=== PATIENT | male | born 1960 ===

== ENCOUNTER 2022-09-13 14:38 | Inpatient (IN) | payer MEDICAID ==
[~2022-09-13] VITALS: Ht 182.9 cm; Wt 73.5 kg
--- NOTE | 2022-09-13 18:15 | NUR ---
Admission Note: Pt. was admitted to the unit on a gurney from [place] in [place] accompanied by drivers. Pt. is on a 5150 for GD. Per 5150: Pt. Expresses magical thinking about being a real estate assessor or ex chef. He appears unable to concretely describe how he will access food, clothing, and mcc (eviction may be imminent). Pt . was cooperative with skin assessment, however refuses to shower at this time, endorsed to Noc shift.
[2022-09-13 18:20] VITALS: BP 171/93; PULSE 64; RESP 16; TEMP 98.2; O2SAT 99
[2022-09-13 19:00] VITALS: RESP 20; O2SAT 100
[2022-09-13] MEDS ORDERED: acetaminophen 325mg tablet PO PRN ×2 (19:05)
[2022-09-13] MEDS ORDERED: loperamide 2mg capsule PO PRN (19:05)
[2022-09-13] MEDS ORDERED: mag hydrox/Alum hydrox/simeth 30ml oral suspension PO PRN (19:05)
[2022-09-13] MEDS ORDERED: magnesium hydroxide 30ml (MOM) UD suspension PO PRN (19:05)
[2022-09-13] MEDS ORDERED: ACET-812 PO (19:15)
[2022-09-13] MEDS ORDERED: CEPH500C2 PO (19:19)
[2022-09-13] MEDS ORDERED: CLIN300C3 PO (19:21)
[2022-09-13] MEDS ORDERED: DIAZ5TAB4 PO (19:23)
[2022-09-13] MEDS ORDERED: HYDR-3686 PO (19:26)
[2022-09-13 19:29] VITALS: BP 164/119; PULSE 81; RESP 20; TEMP 98.2; O2SAT 100
[2022-09-13] MEDS ORDERED: LIPA1CAP18 PO (19:30)
[2022-09-13] MEDS ORDERED: METH-603 PO (19:32)
[2022-09-13] MEDS ORDERED: MORP15TA PO (19:34)
[2022-09-13] MEDS ORDERED: HYDR-3717 PO (19:45)
[2022-09-13] MEDS: diazepam 5mg tablet PO PRN (21:03)
[2022-09-13] MEDS: methadone 5mg tablet PO SCH (21:10)
[2022-09-13] MEDS: morphine IR (immed. release) 30mg tablet PO SCH (21:10)
[2022-09-14] MEDS ORDERED: non-formulary drug (Acetaminophen (Tylenol Extra Strength) 1 TABLET) PO SCH (02:00)
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
[2022-09-14 07:06] VITALS: BP 164/123; PULSE 65; RESP 16; TEMP 97; O2SAT 100
[2022-09-14] MEDS: LIPASE/PROTEASE/AMYLASE 10,500 units CAPSULE.DR PO SCH ×4 (07:19→18:25)
[2022-09-14] MEDS: nicotine 21mg patch - 24 hr TD SCH (07:22)
[2022-09-14] MEDS: methadone 5mg tablet PO SCH ×3 (07:23→20:15)
[2022-09-14 07:35] LABS: HEMOGLOBIN A1C 5.2 % (4.5-6.2)
[2022-09-14 08:25] LABS: CHOL/HDL RATIO 3.1 (0.00-4.99); CHOLESTEROL 159 MG/DL (0-200); HDL CHOLESTEROL 52 MG/DL (35-60); LDL CHOLESTEROL 95 MG/DL (50-100); TRIGLYCERIDES 40 MG/DL (20-135)
[2022-09-14] MEDS: morphine IR (immed. release) 30mg tablet PO SCH (08:40)
[2022-09-14 09:22] VITALS: RESP 18; O2SAT 100
--- NOTE | 2022-09-14 12:31 | NUR ---
Malnutrition consult: Pt reports 14-23 lb wt loss with decreased appetite per malnutrition risk screen with RN. No wt hx in EMR though current scaled weight is appropriate. Pt on a regular diet and eating well, documented with 100% PO intake with an HS snack 09/13. Pt with no documented decrease in muscle strength and with LLE 2+ mild edema. Pt currently lacks a minimum of two criteria for malnutrition though will continue to follow and monitor s/s of malnutrition. Addendum: 09/14/22 at [address] Amended: Links added.
[2022-09-14] MEDS: diazepam 5mg tablet PO PRN ×2 (13:04→15:51)
--- NOTE | 2022-09-14 16:41 | NUR ---
Nursing progress note: Problem: Pt. was admitted to the unit on a gurney from [place] in [place] accompanied by drivers. Pt. is on a 5150 for GD. Per 5150: Pt. Expresses magical thinking about being a real estate consultant or chef's assistant. He appears unable to concretely describe how he will access food, clothing, and fpc (eviction may be imminent). Interventions: Administer PRN medications as appropriate. Increased level of observation. Minimize level of environmental stimulation. Monitor patient behaviors. ADL prompting. Administer treatments as prescribed. Assess status. Provide patient/family education. Perform q15 minutes checks. Response: Client very fast talking and very dramatic in his description and stories. Patient took all medications during the morning hours except did not take all of his Creon at this time. Patient states his scabs to his lower extremities are ingrown hairs that have spread and become infected. Patient had been using socks to remove dry skin, new socks were provided. Patient upset about morphine and methadone scheduling but states, I would rather withdrawal here and scream into a pillow, then be a nuisance to my neighbors. Patient is getting what his medication reconciliation states he takes. Patient spoke with MD and Patient experiencing delusional about conspiracy theories about not receiving federal healthcare benefits. Plan: Pt. medication adjustments, and a safe and supportive environment.
[2022-09-14 19:00] VITALS: RESP 18; O2SAT 96
[2022-09-14 20:00] VITALS: BP 170/108; PULSE 96; RESP 20; TEMP 99.3; O2SAT 99
[2022-09-14] MEDS: hydrOXYzine 10 MG tablet PO PRN (20:15)
[2022-09-14] MEDS: morphine IR (immed. release) 30mg tablet PO PRN (20:33)
--- NOTE | 2022-09-14 23:59 | NUR ---
Patient was given Diazepam 5 mg for anxiety.
[2022-09-15] MEDS ORDERED: traZODone 50mg tablet PO ONE (00:25)
[2022-09-15] MEDS ORDERED: PALIPERIDONE 3 MG TAB.ER.24 PO ONE (00:25)
--- NOTE | 2022-09-15 03:30 | NUR ---
The patient bangs on his wall and yells. This abstract writer enters patients room to inquire how he is doing? The patient uses foul language and screams "what do you think? He yells at this abstract writer to "get the fuck out of my room." He continued to rant. Patient states he should be given Ativan 4 mg, that is what works for me. He then repeated his above statement about leaving the room.
[2022-09-15] MEDS: diazepam 5mg tablet PO PRN ×3 (03:35→16:07)
--- NOTE | 2022-09-15 03:47 | NUR ---
Nursing progress note: Problem: Pt. was admitted to the unit on a gurney from [place] in [place] accompanied by drivers. Pt. is on a 5150 for GD. Per 5150: Pt. Expresses magical thinking about being a real estate rep or manager control. He appears unable to concretely describe how he will access food, clothing, and half-way (eviction may be imminent). Interventions: Administer PRN medications as appropriate. Increased level of observation. Minimize level of environmental stimulation. Monitor patient behaviors. ADL prompting. Administer treatments as prescribed. Assess status. Provide patient/family education. Perform q15 minutes checks. Response: This patient ambulates the halls following shift change. The patient approaches this nurse demanding narcotics. He expresses anger that he is not getting what he needs, "I'm always prescribed more than I'm getting here." The patient exhibits manic behavior, his speech is rapid and at times loud. The patient exhibits mood swings. He later talks about fire engines and fire boats, gargoyles, beautiful architecture in [place], etc. Patient tells this television writer "this is as bad as it gets!" Patient was given Diazepam, Atarax, and his Rx meds. Patient night states he can't sleep. Dr. Alvarenga contacted, an order was received for Paliperidone 6 mg PO, this was given. A Trazadone PRN order was received. The patient refused his Trazidone telling this television writer, "It makes me suicidal." The patient denies S/I or H/I at this time. He denies any hallucinations. Plan: Pt. medication adjustments, and a safe and supportive environment.
--- NOTE | 2022-09-15 05:47 | NUR ---
The patient provided a female Tech with a hand written note that looked nonsensical to this chief writer. The Tech felt uncomfortable about being the subject of this note. The note will be placed in the patients chart for the provider to view if necessary.
[2022-09-15 07:00] VITALS: BP 178/102; PULSE 82; RESP 18; TEMP 98.7; O2SAT 99
[2022-09-15] MEDS: methadone 5mg tablet PO SCH ×2 (08:04→20:15)
[2022-09-15] MEDS: nicotine 21mg patch - 24 hr TD SCH (08:04)
[2022-09-15] MEDS: LIPASE/PROTEASE/AMYLASE 10,500 units CAPSULE.DR PO SCH ×3 (08:04→17:52)
[2022-09-15] MEDS: morphine IR (immed. release) 30mg tablet PO PRN ×2 (08:05→20:16)
[2022-09-15] MEDS: hydrOXYzine 10 MG tablet PO PRN (08:05)
[2022-09-15] MEDS ORDERED: atenolol 50mg tablet PO ONE (08:46)
[2022-09-15] MEDS ORDERED: divalproex sod 250mg ER (24-hour) tablet PO ONE (08:50)
[2022-09-15 11:03] VITALS: BP 142/93; PULSE 61; RESP 18; O2SAT 98
--- NOTE | 2022-09-15 17:36 | NUR ---
Nursing progress note: Problem: Pt. was admitted to the unit on a gurney from [place] in [place] accompanied by drivers. Pt. is on a 5150 for GD. Per 5150: Pt. Expresses magical thinking about being a director of real estate or catcher helper. He appears unable to concretely describe how he will access food, clothing, and alf (eviction may be imminent). Interventions: Administer PRN medications as appropriate. Increased level of observation. Minimize level of environmental stimulation. Monitor patient behaviors. ADL prompting. Administer treatments as prescribed. Assess status. Provide patient/family education. Perform q15 minutes checks. Response: Patient awake at change of shift walking the hallways. Patient is hyperverbal, and has many stories to tell. Patient attends all meals and snacks with his peers. Patient takes medications as ordered except he only took 1/3 of his Pancrease for breakfast and took the full amount for lunch. Patient took two prn Valium this shift. Patient reports that he is being evicted and has to be at his house at 08:00 in the morning to remove his belongings, before being evicted. Patient is hypomanic and states that [facility] has me down for being a linguistic specialist. Patient asked RN if I knew of Ambroseist mu-ism? Informed him that I was not very familiar. Patient went on to say that Deo sat by a tree for 9 years and was enlightened at the end of it. Patient similarly states that I has been on a couch for 14 years and he has reached a period of enlightenment, and that his thoughts are clear and he is back. Patient with pressured speech. Patient was seen wearing headphones and dancing at the end of the collins next to his room. Patient is in a good mood and is happy with his medications. Plan: Pt. medication adjustments, and a safe and supportive environment.
[2022-09-15 19:00] VITALS: RESP 18; O2SAT 98
[2022-09-15 19:51] VITALS: BP 148/94; PULSE 98; RESP 18; TEMP 98.9; O2SAT 98
[2022-09-15] MEDS: divalproex sod 250mg ER (24-hour) tablet PO SCH (20:00)
[2022-09-15] MEDS ORDERED: LORazepam 0.5 MG tablet PO PRN (20:20)
[2022-09-15] MEDS: PALIPERIDONE 3 MG TAB.ER.24 PO SCH (21:00)
[2022-09-15] MEDS: NICOTINE POLACRILEX 2 MG LOZENGE BC PRN (23:30)
[2022-09-16] MEDS: LORazepam 1 MG tablet PO ONE ×2 (02:26→02:50)
--- NOTE | 2022-09-16 05:08 | NUR ---
Nursing progress note: Problem: Pt. was admitted to the unit on a gurney from [place] in [place] accompanied by drivers. Pt. is on a 5150 for GD. Per 5150: Pt. Expresses magical thinking about being a residential real estate appraiser or stapler hand. He appears unable to concretely describe how he will access food, clothing, and longterm (eviction may be imminent). Interventions: Administer PRN medications as appropriate. Increased level of observation. Minimize level of environmental stimulation. Monitor patient behaviors. ADL prompting. Administer treatments as prescribed. Assess status. Provide patient/family education. Perform q15 minutes checks. Response: Pt up walking in halls at start of shift. During introductions pt became argumentative. He said he is going to be evicted so he needs to get out of here for 24 hours and then he will come back. Informed he will have to talk to his Doctor about that. Pt refused Depakote and Invega took Methadone and Ativan. He continued to walk in halls at times randomly spinning and crouching. At 0245 rounds pt had barricaded door shut. He had used 2 chairs barricaded against the bed. Tech was able to move chair with foot and open door. Chair removed from room. Pt was loud yelling things like I need to see my advocate right now. Dr Alvarenga called and ordered 2mg Ativan now. Pt agreed to take Ativan. 0315 Pt is staying in his room periodically yelling things like I dont fucking believe this. Any attempt to comfort or appease him makes him yell more. Pt is quiet in his dark room. Plan: Pt. medication adjustments, and a safe and supportive environment.
[2022-09-16 07:00] VITALS: RESP 20; O2SAT 100
[2022-09-16] MEDS: LIPASE/PROTEASE/AMYLASE 10,500 units CAPSULE.DR PO SCH ×3 (07:30→18:14)
[2022-09-16] MEDS: atenolol 50mg tablet PO SCH (07:30)
[2022-09-16] MEDS ORDERED: diazepam 5mg tablet PO ONE (07:45)
[2022-09-16] MEDS: morphine IR (immed. release) 30mg tablet PO PRN ×2 (07:55→17:10)
[2022-09-16 08:00] VITALS: BP 152/110; PULSE 73; RESP 20; TEMP 97.6; O2SAT 100
[2022-09-16] MEDS: divalproex sod 250mg ER (24-hour) tablet PO SCH ×2 (08:00→20:00)
[2022-09-16] MEDS: methadone 5mg tablet PO SCH ×2 (08:00→10:53)
[2022-09-16] MEDS: NICOTINE POLACRILEX 2 MG LOZENGE BC PRN (11:55)
[2022-09-16] MEDS ORDERED: morphine IR (immed. release) 30mg tablet PO PRN (12:15)
[2022-09-16 12:22] VITALS: BP 152/92; PULSE 71; RESP 18; O2SAT 96
--- NOTE | 2022-09-16 13:34 | NUR ---
5250 UPHELD FOR DTS
[2022-09-16] MEDS ORDERED: methadone 5mg tablet PO SCH (16:00)
--- NOTE | 2022-09-16 17:22 | NUR ---
Nursing progress note: Ru Problem: Pt. was admitted to the unit on a gurney from [place] in [place] accompanied by drivers. Pt. is on a 5150 for GD. Per 5150: Pt. Expresses magical thinking about being a residential real estate agent or performing arts technicians. He appears unable to concretely describe how he will access food, clothing, and half-way (eviction may be imminent). Interventions: Provided 1:1 assessment, therapeutic conversation, active listening, medication administration/education/monitoring, behavior monitoring and intervention as needed; attempted reality orientation, provided distraction, redirection, positive reinforcement, and Q15 min safety checks. Response: Patient received awake pacing around the unit, noted to be irritable and hyperverbal. Patient noted refusing scheduled medication this morning. Encouraged to take scheduled Atenolol d/t elevated BP of 152/110mmHg. Patient verbally aggressive toward staff. Attempted to shove and got in the face of the charge nurse after being informed to stop cursing at staff. Patient endorsing that he is argelia I didnt tear through him like I wanted to! Patient was only receptive to take PRN Morphine and One-time dose of Diazepam 5mg this morning. He later was receptive to scheduled Methadone for pain. Patient endorsing, I take what I want when I want it, little bitch! He is noted to be intrusive, impulsive, and disruptive on the unit. Patient denies all MH symptoms, however, is noted talking to himself throughout the shift. Patient was noted endorsing that he gets high off his sisters hesham crafts to manage his pain, referring to fentanyl. Patient stating that he needs pain meds or a hammer to the head. He was noted to be hypomanic toward the end of the shift and less intrusive toward staff. Pt continues to require frequent redirection. He has been having meals provided to him in his room to avoid disruption on the unit. Plan: Pt. medication adjustments, and a safe and supportive environment. Addendum: 09/16/22 at 1730 by Bobo Reynolds RN (Coop) SENIOR BOILER OPERATOR documentation: I have reviewed and agree with all interventions, assessments performed and documented by Lisa MATA. Addendum: 09/16/22 at 1818 by Lisa San LVN Patient only receptive to taking one Pancreaze capsule at 1730 despite prescribed order for three capsules.
[2022-09-16 19:00] VITALS: RESP 16; O2SAT 100
[2022-09-16 20:00] VITALS: BP 123/75; PULSE 76; RESP 16; TEMP 98.6; O2SAT 100
[2022-09-16] MEDS: LORazepam 0.5 MG tablet PO PRN (20:10)
[2022-09-16] MEDS: LORazepam 1 MG tablet PO PRN (20:10)
[2022-09-16] MEDS: PALIPERIDONE 3 MG TAB.ER.24 PO SCH (21:00)
--- NOTE | 2022-09-17 01:55 | NUR ---
Nursing progress note: Ru Problem: Pt. was admitted to the unit on a gurney from [place] in [place] accompanied by drivers. Pt. is on a 5150 for GD. Per 5150: Pt. Expresses magical thinking about being a real estate operations manager or sous chef kitchen manager. He appears unable to concretely describe how he will access food, clothing, and skilled nursing (eviction may be imminent). Interventions: Provided 1:1 assessment, therapeutic conversation, active listening, medication administration/education/monitoring, behavior monitoring and intervention as needed; attempted reality orientation, provided distraction, redirection, positive reinforcement, and Q15 min safety checks. Response: Pt up on unit at start of shift. Hyperverbal, hostile toward staff, immediately asked if he could have any pain meds. No pain meds due. Pt behavior continued to escalate Pt declined Ativan at first attempt. Charge nurse was able to convince pt to take Ativan. Pt continued to refuse Depakote and Invega. Dr. Alvarenga notified by phone about pt refusing meds. Dr Alvarenga suggested to offer the pt Zyprexa. When Zyprexa offered to pt he said "I want Morphine if you don't have that get away from me." Pt stayed in room after that. He went to sleep about 23:30 sleeping at this time. Plan: Pt. medication adjustments, and a safe and supportive environment.
[2022-09-17 07:00] VITALS: RESP 14; O2SAT 100
[2022-09-17] MEDS: LIPASE/PROTEASE/AMYLASE 10,500 units CAPSULE.DR PO SCH ×3 (07:30→18:02)
[2022-09-17] MEDS: atenolol 50mg tablet PO SCH (07:48)
[2022-09-17 08:00] VITALS: BP 151/101; PULSE 74; RESP 16; TEMP 99; O2SAT 100
[2022-09-17] MEDS ORDERED: morphine IR (immed. release) 30mg tablet PO SCH (08:00)
[2022-09-17] MEDS: divalproex sod 250mg ER (24-hour) tablet PO SCH ×3 (08:00→20:46)
--- NOTE | 2022-09-17 10:00 | NUR ---
Initial: Pt admit for bipolar disorder with dania. Currently on a regular diet and eating well, documented with 100% PO intake of all meals with the exception of 25% PO intake x 2 meals since admit, overall meeting estimated nutrient needs. Per EMR pt with h/o chronic pancreatitis, currently receiving routine Pancreaze with meals. LBM 09/15 per EMR, with PRN bowel care available. No nutrition intervention implemented at this time. Will continue to follow and make recommendations as appropriate. Recommendations: 1) Continue regular diet 2) Continue routine Pancreaze with meals d/t reported h/o chronic pancreatitis 3) Bowel care PRN 4) Weekly scaled weights Addendum: 09/17/22 at [address] Amended: Links added.
[2022-09-17] MEDS: morphine IR (immed. release) 30mg tablet PO PRN (11:04)
[2022-09-17] MEDS ORDERED: morphine IR (immed. release) 30mg tablet PO ONE (13:00)
[2022-09-17] MEDS: NICOTINE POLACRILEX 2 MG LOZENGE BC PRN (14:05)
[2022-09-17] MEDS: methadone 5mg tablet PO SCH (14:05)
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
[2022-09-17 19:00] VITALS: BP 163/89; PULSE 68; RESP 18; TEMP 98.7; O2SAT 99
[2022-09-17] MEDS: PALIPERIDONE 3 MG TAB.ER.24 PO SCH (20:47)
[2022-09-17] MEDS: LORazepam 1 MG tablet PO PRN (20:47)
[2022-09-17] MEDS: LORazepam 0.5 MG tablet PO PRN (23:20)
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
--- NOTE | 2022-09-18 02:12 | NUR ---
Student documentation: I have reviewed all interventions, assessments performed and documented by Camila MATA.
[2022-09-18 07:00] VITALS: RESP 16; O2SAT 100
[2022-09-18 08:00] VITALS: BP 144/94; PULSE 75; RESP 16; TEMP 98.8; O2SAT 100
[2022-09-18] MEDS: morphine IR (immed. release) 30mg tablet PO SCH ×2 (08:10→13:00)
[2022-09-18] MEDS: divalproex sod 250mg ER (24-hour) tablet PO SCH ×2 (08:11→20:12)
[2022-09-18] MEDS: atenolol 50mg tablet PO SCH (08:11)
[2022-09-18] MEDS: LIPASE/PROTEASE/AMYLASE 10,500 units CAPSULE.DR PO SCH ×3 (08:15→18:19)
[2022-09-18] MEDS: LORazepam 1 MG tablet PO PRN (10:49)
[2022-09-18] MEDS: methadone 5mg tablet PO SCH (14:23)
--- NOTE | 2022-09-18 14:45 | NUR ---
PRESSURE ULCER EDUCATION: DEFINITION: A pressure ulcer is an area of skin that breaks down when you stay in one position too long. The constant pressure against the skin reduces the blood flow to that area and the affected tissue dies. CAUSES: "Being bedridden or in a wheelchair "Fragile skin "Having a chronic condition, such as diabetes or vascular disease "Inability to move certain parts of your body without assistance "Older age "Incontinence of urine or stool SYMPTOMS: "A reddened area that DOES NOT turn white when pressed on - this can be the beginning of a pressure ulcer "A blister, deep sore or a crater - these can be advanced pressure ulcers FIRST AID: "Relieve the pressure on this area "Keep the area clean and dry "Call your primary doctor if you see any of the above symptoms "DO NOT massage the area "DO NOT use a donut shaped or ring shaped pillow- these actually interfere with the blood flow and cause complications PREVENTION: "Check for pressure ulcers everyday "Change position at least every two hours to relieve pressure "Use items that help relieve pressure- pillows, sheepskin, foam padding, and powders. "Keep skin clean and dry "Eat healthy well balanced meals "Exercise daily IF YOU SEE ANY OF THESE SYMPTOMS WHILE IN THE HOSPITAL - TELL YOUR NURSE IMMEDIATELY. IF YOU SEE ANY OF THESE SYMPTOMS WHILE AT HOME OR HAVE ANY QUESTIONS OR CONCERNS ABOUT PRESSURE ULCERS - CALL YOUR PRIMARY DOCTOR IMMEDIATELY. Addendum: 09/18/22 at 1445 by Lana Feng RN Amended: Links added.
--- NOTE | 2022-09-18 17:08 | NUR ---
Nursing progress note: Ru Problem: Pt. was admitted to the unit on a gurney from [place] in [place] accompanied by drivers. Pt. is on a 5150 for GD. Per 5150: Pt. Expresses magical thinking about being a real estate executive assistant or run boat operator. He appears unable to concretely describe how he will access food, clothing, and custodial (eviction may be imminent). Interventions: Provided 1:1 assessment, therapeutic conversation, active listening, medication administration/education/monitoring, behavior monitoring and intervention as needed; attempted reality orientation, provided distraction, redirection, positive reinforcement, and Q15 min safety checks. Response: Patient received walking around the unit at shift change with no s/s of distress. Pt appearing hypomanic with hyperverbal, tangential speech. Patient was only receptive to all scheduled medications this morning. Patient endorsing, look how much happier my mood is now! He denies SI/HI, AH and VH. Pt endorsed feeling suicidal in the past because of a horrible thing that he did but denies currently. He is noted endorsing delusions of being a former CRISTIANE specialist in [place] and an assassin. Patient endorsing that he feels as normal as he ever gets. Pt returned a hand full of plastic utensils to this keno writer that he had been storing in his room. He was assessed by the wound care nurse this shift with wound care provided. Pt endorsed that he has something crawling up inside his leg. Continued education is provided for patient to wash his hands regularly d/t MRSA+. He was active on the unit the entire shift, no naps noted. Pt noted to be hyperverbal and socializing with peers at times. He joined in the group room for all meal and snack times. Plan: Pt. requires medication adjustments and a safe and supportive environment.
[2022-09-18 19:00] VITALS: RESP 18; O2SAT 98
[2022-09-18] MEDS: NICOTINE POLACRILEX 2 MG LOZENGE BC PRN ×2 (19:39→22:20)
[2022-09-18] MEDS ORDERED: morphine IR (immed. release) 30mg tablet PO ONE (19:50)
[2022-09-18 20:00] VITALS: BP 155/107; PULSE 87; RESP 18; TEMP 98.9; O2SAT 98
[2022-09-18] MEDS: PALIPERIDONE 3 MG TAB.ER.24 PO SCH (20:12)
[2022-09-18] MEDS: cephalexin 500mg capsule PO SCH (20:12)
[2022-09-18] MEDS: clindamycin 150mg capsule PO SCH (20:12)
[2022-09-19] MEDS: LORazepam 1 MG tablet PO PRN (00:38)
[2022-09-19] MEDS: clindamycin 150mg capsule PO SCH ×4 (02:50→20:16)
[2022-09-19] MEDS: cephalexin 500mg capsule PO SCH ×4 (02:50→20:16)
--- NOTE | 2022-09-19 04:48 | NUR ---
Nursing progress note: Ru Problem: Pt. was admitted to the unit on a gurney from [place] in [place] accompanied by drivers. Pt. is on a 5150 for GD. Per 5150: Pt. Expresses magical thinking about being a residential real estate assistant or head pastry chef. He appears unable to concretely describe how he will access food, clothing, and fci (eviction may be imminent). Interventions: Provided 1:1 assessment, therapeutic conversation, active listening, medication administration/education/monitoring, behavior monitoring and intervention as needed; attempted reality orientation, provided distraction, redirection, positive reinforcement, and Q15 min safety checks. Response: Patient is found in the day room hanging out with other peers. Pt is hypomanic, hyperverbal and having a pain level of 9/10 from having the wound care done on bilateral lower legs. Pt is very dramatic in nature. Morphine IR 30mg tablet given as a one time was given for his pain. Pt is compliant with his other HS medications. Pt took a PRN of nicotine lozenges twice and an Ativan around 0040 after not being able to fall asleep. Encouraged pt. to wash his hands frequently r/t +MRSA. Pt is loud, intrusive and grandiose, I make more money that all of you. 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 Pt denies all mental health symptoms. I just needs help with my pain. Monitor for safety. Plan: Pt. requires medication adjustments and a safe and supportive environment.
[2022-09-19 07:12] VITALS: BP 149/82; PULSE 85; RESP 16; TEMP 98.6; O2SAT 98
[2022-09-19] MEDS: divalproex sod 250mg ER (24-hour) tablet PO SCH ×2 (07:30→20:00)
[2022-09-19] MEDS: atenolol 50mg tablet PO SCH (07:30)
[2022-09-19] MEDS: LORazepam 0.5 MG tablet PO PRN ×2 (07:30→20:16)
[2022-09-19] MEDS: morphine IR (immed. release) 30mg tablet PO SCH ×2 (07:31→12:24)
[2022-09-19] MEDS: LIPASE/PROTEASE/AMYLASE 10,500 units CAPSULE.DR PO SCH ×3 (08:15→18:03)
[2022-09-19] MEDS: NICOTINE POLACRILEX 2 MG LOZENGE BC PRN ×3 (08:59→21:07)
[2022-09-19 09:17] LABS: EOSINOPHILS # (AUTO) 0.1 X10'3 (0-0.9); EOSINOPHILS % (AUTO) 1.5 % (0-6); HEMOGLOBIN 12.9 g/dl (14.0-17.9); LYMPHOCYTES # (AUTO) 0.7 X10'3 (1.1-4.8); MEAN CORPUSCULAR HEMOGLOBIN 31.5 PG (27.0-31.0); MEAN CORPUSCULAR VOLUME 95.4 FL (78-98); MEAN PLATELET VOLUME 8.2 FL (7.4-10.4); MONOCYTES # (AUTO) 0.4 X10'3 (0-0.9); MONOCYTES % (AUTO) 8.5 % (2-12); NEUTROPHILS # (AUTO) 3.7 X10'3 (1.8-7.7); PLATELET COUNT 209 X10'3 (140-440); RED BLOOD COUNT 4.08 X10'6 (4.70-6.10); RED CELL DISTRIBUTION WIDTH 14.3 % (11.5-14.5)
[2022-09-19 09:34] LABS: ALANINE AMINOTRANSFERASE 13 U/L (12-78); ALBUMIN 3.6 G/DL (3.4-5.0); ALBUMIN/GLOBULIN RATIO 1.1 (1.1-1.5); ALKALINE PHOSPHATASE 79 IU/L (46-116); ANION GAP 8 (8-16); ASPARTATE AMINO TRANSFERASE 19 U/L (10-37); BILIRUBIN,TOTAL 0.7 MG/DL (0.1-1.0); BLOOD UREA NITROGEN 26 MG/DL (7-18); BUN/CREATININE RATIO 27.7 (10.0-20.0); CHLORIDE 104 MMOL/L (99-107); CREATININE 0.94 MG/DL (0.60-1.10); GLUCOSE 117 MG/DL (70-104); POTASSIUM 4.4 MMOL/L (3.5-5.1); SODIUM 139 MMOL/L (135-145); TOTAL CARBON DIOXIDE 27.2 MMOL/L (24-32); eGFR 82 ML/MIN
--- NOTE | 2022-09-19 14:32 | NUR ---
NURSING PROGRESS NOTE: Problem: Pt. is on a 5150 for GD. Pt. expresses magical thinking about being a residential real estate agent or vessel crew member. Pt unable to concretely describe how he will access food, clothing, and chcf. Interventions: One to one with patient to assess pt mood, administered medication as ordered with no adverse side effects, attempted to reorient to reality, redirection as needed, maintained clear boundaries, Q15 min safety rounds. Response: Received patient awake in his room at shift change. Pt came out and immediately required redirections to keep his voice down. Pt is noted sliding down the collins in his socks. Pt presents with hyperverbal, disorganized speech. Pt is grandiose in his thoughts talking about working for the [employer] and being an assassin. They cant charge me for murder because I was doing my job, but that was year and year and years ago. Pt also said I dont need that Depakote. I am going to be the next trillionaire. Pt compares himself to Bonifacio Randolph. Pt was administered PRN Ativan 0.5mg as he was intrusive this morning with a younger female peer. He was asked to not hang outside her door and stop tossing papers in the room. Pt told curriculum writer I am not doing anything wrong she is 21 years old. Pt is easily agitated at times, growling when asked to do things. PRN was effective. Pt is dramatic when it comes to describing his pain. Again he growls and moans, however does not appear to be in pain as he then gets distracted talking to other patients. Pt was given an ID bracelet, but then tore it off. Wound care was completed per orders. Reinforced the importance of hand hygiene d/t MRSA +. Patient titrating Pancreaze to what he is eating. B - 1 pill L - 2 pills. Plan: Patient continues to have significant mood lability, disorganized and racing thoughts. Pt continues to require medication titration in a safe and therapeutic environment. Pt has little insight into his mental health. Addendum: 09/19/22 at 1805 by Lali Whiteside RN Pt requested 2 Pancreaze pills for his dinner, declined the 3rd pill.
[2022-09-19] MEDS: methadone 5mg tablet PO SCH (14:40)
[2022-09-19 19:00] VITALS: RESP 16; O2SAT 98
[2022-09-19 20:00] VITALS: BP 156/80; PULSE 77; RESP 16; TEMP 96.4; O2SAT 98
[2022-09-19] MEDS: PALIPERIDONE 3 MG TAB.ER.24 PO SCH (20:21)
[2022-09-20] MEDS: cephalexin 500mg capsule PO SCH ×4 (02:00→20:52)
[2022-09-20] MEDS: clindamycin 150mg capsule PO SCH ×4 (02:00→20:52)
--- NOTE | 2022-09-20 05:20 | NUR ---
Nursing progress note: Ru Problem: Pt. was admitted to the unit on a gurney from [place] in [place] accompanied by drivers. Pt. is on a 5150 for GD. Per 5150: Pt. Expresses magical thinking about being a certified real estate appraiser or catering sous chef. He appears unable to concretely describe how he will access food, clothing, and custodial (eviction may be imminent). Interventions: Provided 1:1 assessment, therapeutic conversation, active listening, medication administration/education/monitoring, behavior monitoring and intervention as needed; attempted reality orientation, provided distraction, redirection, positive reinforcement, and Q15 min safety checks. Response: Patient is in the day room watching TV and sitting close to a female peer he has been inappropriate with. Pt is intrusive, argumentative with staff and uncooperative. Pt refused his Invega and Depakote but took his antibiotics and Ativan 0.5mg. Pt was prompted and encouraged to take his psych medications but he flatly refused. Pt is visible on unit and will sing to himself and whistle spontaneously. Pt is grandiose making delusional statements throughout the shift. 0300- Antibiotics held. Pt remarked earlier in the evening to watch out if I wake him up, I might wake up with my fist first. Monitor for safety. Plan: Pt. requires medication adjustments and a safe and supportive environment.
[2022-09-20] MEDS: LIPASE/PROTEASE/AMYLASE 10,500 units CAPSULE.DR PO SCH ×3 (07:02→13:19)
[2022-09-20] MEDS: morphine IR (immed. release) 30mg tablet PO SCH ×2 (07:03→12:14)
[2022-09-20] MEDS: atenolol 50mg tablet PO SCH (07:07)
[2022-09-20] MEDS: divalproex sod 250mg ER (24-hour) tablet PO SCH ×2 (07:10→20:00)
[2022-09-20 07:45] VITALS: BP 148/98; PULSE 89; RESP 14; TEMP 97.9; O2SAT 98
[2022-09-20] MEDS: NICOTINE POLACRILEX 2 MG LOZENGE BC PRN ×4 (07:48→20:55)
[2022-09-20] MEDS: methadone 5mg tablet PO SCH (14:36)
--- NOTE | 2022-09-20 16:35 | NUR ---
Nursing progress note: Ru Problem: Pt. was admitted to the unit on a gurney from [place] in [place] accompanied by drivers. Pt. is on a 5150 for GD. Per 5150: Pt. Expresses magical thinking about being a real estate office manager or chef saucier. He appears unable to concretely describe how he will access food, clothing, and fdc (eviction may be imminent). Interventions: Provided 1:1 assessment, therapeutic conversation, active listening, medication administration/education/monitoring, behavior monitoring and intervention as needed; attempted reality orientation, provided distraction, redirection, positive reinforcement, and Q15 min safety checks. Response: Patient was found standing in hallway socializing with other patients. Patient was appeared hypomanic. Patient was seen singing and dancing in halls, arguing and acting out with other patients,. Patient also has tangential thought process during conversations or when answering questions. Patient refused to take Depakote this morning stating he had great sleep last night so he didn't need it. Patient requested prn nicotine lozenges x4 . Patient continues to pace unit socializing with patients and staff telling delusional and grandiose stories mixed in with jokes and loud statements. Patient took afternoon medications without issue. Plan: Pt. requires medication adjustments and a safe and supportive environment.
--- NOTE | 2022-09-20 17:48 | NUR ---
Incident Patient observed giving away half of nicotine lozenge to other patient. Patient was intercepted and medication was disposed of.
[2022-09-20 19:00] VITALS: RESP 21; O2SAT 100
[2022-09-20 20:00] VITALS: BP 157/103; PULSE 71; RESP 21; TEMP 97.1; O2SAT 100
[2022-09-20] MEDS: PALIPERIDONE 3 MG TAB.ER.24 PO SCH (20:06)
[2022-09-20] MEDS: LORazepam 1 MG tablet PO PRN (20:52)
--- NOTE | 2022-09-21 01:38 | NUR ---
Nursing progress note: Ru Problem: Pt. was admitted to the unit on a gurney from [place] in [place] accompanied by drivers. Pt. is on a 5150 for GD. Per 5150: Pt. Expresses magical thinking about being a real estate account executive or geoduck diver. He appears unable to concretely describe how he will access food, clothing, and retirement (eviction may be imminent). Interventions: Provided 1:1 assessment, therapeutic conversation, active listening, medication administration/education/monitoring, behavior monitoring and intervention as needed; attempted reality orientation, provided distraction, redirection, positive reinforcement, and Q15 min safety checks. Response: Received pt. in the day room where he is sitting around with other peers are interacting together. Pt is hyperverbal and intrusive with others. Pt refused his psych medications but took his antibiotics and a PRN Ativan 1mg. Pt is adamant that he will not take these medications and the doctor told him it was okay. Pt has a new red spot on his right cheek and he said it was from rubbing it hard with a wash cloth. Its nothing compared to my leg. Continue to monitor for safety. Plan: Pt. requires medication adjustments and a safe and supportive environment.
[2022-09-21] MEDS: cephalexin 500mg capsule PO SCH ×4 (02:00→19:55)
[2022-09-21] MEDS: clindamycin 150mg capsule PO SCH ×4 (02:00→19:55)
[2022-09-21 07:30] VITALS: BP 139/97; PULSE 82; RESP 21; TEMP 97.4; O2SAT 97
[2022-09-21] MEDS: LIPASE/PROTEASE/AMYLASE 10,500 units CAPSULE.DR PO SCH ×5 (07:30→18:15)
[2022-09-21] MEDS: divalproex sod 250mg ER (24-hour) tablet PO SCH (08:00)
[2022-09-21] MEDS: LORazepam 0.5 MG tablet PO PRN ×2 (08:09→17:30)
[2022-09-21] MEDS: morphine IR (immed. release) 30mg tablet PO SCH ×2 (08:09→12:12)
[2022-09-21] MEDS: atenolol 50mg tablet PO SCH (08:09)
[2022-09-21] MEDS: NICOTINE POLACRILEX 2 MG LOZENGE BC PRN ×3 (09:18→18:15)
[2022-09-21] MEDS: methadone 5mg tablet PO SCH (13:23)
--- NOTE | 2022-09-21 17:01 | NUR ---
Nursing progress note: Ru Problem: Pt. was admitted to the unit on a gurney from [place] in [place] accompanied by drivers. Pt. is on a 5150 for GD. Per 5150: Pt. Expresses magical thinking about being a real estate representative or head pastry chef. He appears unable to concretely describe how he will access food, clothing, and halfway (eviction may be imminent). Interventions: Provided 1:1 assessment, therapeutic conversation, active listening, medication administration/education/monitoring, behavior monitoring and intervention as needed; attempted reality orientation, provided distraction, redirection, positive reinforcement, and Q15 min safety checks. Response: Patient was received pacing hallways drinking water and displaying hypomanic behavior. Patient was very loud and was seen talking and arguing with other patients. Patient asked nurse for his medications and slowly started getting louder and louder. Patient eventually stated he was going to act out so he could get his medications. Patient started screaming and banging on willis. Patient refused Depakote but took the rest of his morning meds. Patient requested nicotine lozenges. Patient continued his loud and disruptive behavior through out the day. Patient was also found to be trying to make wine in his bathroom. Later dr. Grier started talking to patient about his agreement with Dr. Alvarenga. Patient was informed if he continued to not take his psych meds his other medications would be reduced. Patient became very agitated and started yelling at dr. Grier. Patient yelled if you want to see me go through pain fuck you and your whole family. Patient also called dr venecia valentin. Patient continued to come back yelling things multiple times before eventually going back to community room. Patient also had to be reminded again to not go into females rooms. Plan: Pt. requires medication adjustments and a safe and supportive environment.
[2022-09-21] MEDS: PALIPERIDONE 3 MG TAB.ER.24 PO SCH (17:29)
[2022-09-21 19:00] VITALS: BP 143/106; PULSE 80; RESP 16; TEMP 99.2; O2SAT 99
[2022-09-21 19:14] VITALS: RESP 16; O2SAT 99
[2022-09-21] MEDS: Melatonin 3mg tablet PO SCH (19:56)
[2022-09-21] MEDS: LORazepam 1 MG tablet PO PRN (22:54)
[2022-09-22] MEDS: clindamycin 150mg capsule PO SCH ×4 (02:00→20:46)
[2022-09-22] MEDS: cephalexin 500mg capsule PO SCH ×4 (02:00→20:47)
[2022-09-22] MEDS ORDERED: LORazepam 2 mg/ml vial ONE (04:19)
[2022-09-22] MEDS ORDERED: diphenhydrAMINE 50 mg/ml inj ONE (04:19)
[2022-09-22] MEDS ORDERED: haloperidol lactate 5mg/ml inj ONE (04:20)
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
--- NOTE | 2022-09-22 04:51 | NUR ---
Nursing progress note: Ru Problem: Pt. was admitted to the unit on a gurney from [place] in [place] accompanied by drivers. Pt. is on a 5150 for GD. Per 5150: Pt. Expresses magical thinking about being a securities and real estate director or head pastry chef. He appears unable to concretely describe how he will access food, clothing, and mcc (eviction may be imminent). Interventions: Provided 1:1 assessment, therapeutic conversation, active listening, medication administration/education/monitoring, behavior monitoring and intervention as needed; attempted reality orientation, provided distraction, redirection, positive reinforcement, and Q15 min safety checks. Response: Patient was found sitting in community room watch movie with other patients. Patient was overheard making multiple sexually inappropriate comments towards and about staff. Patient was redirected to community room where he stayed until movie was over. Patient was later found washing his feet in a bucket in his room were their was water all over the floor going fro the bathroom to the door. When asked about what he was doing, patient became argumentative and agitated getting in nurses faces yelling and threatening. Patients room was cleaned and prn Ativan 1mg was given. Patient slept for 5 hours before getting up arguing with staff again. Karl Mustafa was called and Ativan 2mg Im, Benadryl 50mg Im and [id number] Im was ordered. When trying to get patient into observation room , patient pushed pass staff to go into room to grab a book, patient also corner nurse when going into observation room. Security was call and patient was given im. Patient is currently resting in observation room door unlocked. Plan: Pt. requires medication adjustments and a safe and supportive environment.
[2022-09-22 07:00] VITALS: RESP 16; O2SAT 98
[2022-09-22] MEDS: LIPASE/PROTEASE/AMYLASE 10,500 units CAPSULE.DR PO SCH ×3 (07:30→18:18)
[2022-09-22 08:00] VITALS: BP 148/88; PULSE 84; RESP 14; TEMP 97.3; O2SAT 98
[2022-09-22] MEDS: morphine IR (immed. release) 30mg tablet PO SCH ×2 (08:01→12:07)
[2022-09-22] MEDS: atenolol 50mg tablet PO SCH (08:52)
[2022-09-22] MEDS: NICOTINE POLACRILEX 2 MG LOZENGE BC PRN ×2 (09:45→17:39)
[2022-09-22] MEDS: divalproex 250mg tablet, delayed-release PO SCH (14:00)
[2022-09-22] MEDS: PALIPERIDONE 3 MG TAB.ER.24 PO SCH (14:00)
[2022-09-22] MEDS ORDERED: methadone 5mg tablet PO SCH (14:00)
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
[2022-09-22] MEDS ORDERED: PALIPERIDONE 3 MG TAB.ER.24 PO SCH ×2 (17:30→19:00)
[2022-09-22] MEDS: LORazepam 0.5 MG tablet PO PRN (17:40)
--- NOTE | 2022-09-22 17:53 | NUR ---
TRANSPORTATION ARRANGEMENTS HAVE BEEN MADE WITH "[facility] TRANSPORTATION DEPT." #[phone] PT TO BE PICKED UP BETWEEN 9-10AM SEE NOTES
[2022-09-22 19:00] VITALS: RESP 18; O2SAT 98
[2022-09-22] MEDS ORDERED: divalproex 250mg tablet, delayed-release PO SCH (19:00)
[2022-09-22 20:14] VITALS: BP 149/86; PULSE 82; RESP 18; TEMP 98.8; O2SAT 98
[2022-09-22] MEDS: LORazepam 1 MG tablet PO PRN (20:48)
[2022-09-22] MEDS: Melatonin 3mg tablet PO SCH (20:55)
--- NOTE | 2022-09-23 05:28 | NUR ---
Nursing progress note: Ru Problem: Pt. was admitted to the unit on a gurney from [place] in [place] accompanied by drivers. Pt. is on a 5150 for GD. Per 5150: Pt. Expresses magical thinking about being a real estate accountant or drywall metal stud worker. He appears unable to concretely describe how he will access food, clothing, and senior living (eviction may be imminent). Interventions: Provided 1:1 assessment, therapeutic conversation, active listening, medication administration/education/monitoring, behavior monitoring and intervention as needed; attempted reality orientation, provided distraction, redirection, positive reinforcement, and Q15 min safety checks. Response: Received pt. in the day room where he was finishing his dinner and interacting with the other peers. Pt already refusing his psych meds during 1:1. I dont need those drugs and I wont take. The need to stop fjustyn around with my pain medications. Pt is vulgar and uncooperative tonight. Pt denies all mental health symptoms. Pt was informed that refusing his Depakote and Invega will affect the dosage of his morning Morphine. Pt stated he didnt care with other expletives. Pt took an Ativan 1mg along with his antibiotics. Pt is agitated and rude with staff. Monitor for safety. Plan: Pt. is to be discharged on 09/23/22 to [facility].
[2022-09-23 07:00] VITALS: RESP 20; O2SAT 100
[2022-09-23 08:00] VITALS: BP 158/95; PULSE 85; RESP 20; TEMP 98.2; O2SAT 100
[2022-09-23] MEDS: PALIPERIDONE 3 MG TAB.ER.24 PO SCH (08:00)
[2022-09-23] MEDS: divalproex 250mg tablet, delayed-release PO SCH (08:00)
[2022-09-23 08:03] VITALS: BP_SYST 158; PULSE 85
[2022-09-23] MEDS: morphine IR (immed. release) 30mg tablet PO SCH (08:03)
[2022-09-23] MEDS: atenolol 50mg tablet PO SCH (08:03)
[2022-09-23] MEDS: LIPASE/PROTEASE/AMYLASE 10,500 units CAPSULE.DR PO SCH (08:46)
[2022-09-23] MEDS ORDERED: CEPH500C2 PO (08:47)
[2022-09-23] MEDS ORDERED: NICO-907 BC (08:47)
[2022-09-23] MEDS ORDERED: ATEN50TA41 PO (08:47)
[2022-09-23 09:03] VITALS: RESP 14
[2022-09-23] MEDS: NICOTINE POLACRILEX 2 MG LOZENGE BC PRN (09:41)
--- NOTE | 2022-09-23 10:38 | NUR ---
DISCHARGE: Patient discharged and escorted from the unit at approximately 0957. He was escorted by staff and security, noted walking with a steady gait. Discharge instructions reviewed, pt verbalized understanding. Personal belongings inventoried and returned to him. Pt is A&O x4 with no s/s of distress. He was picked up by transport manager and left the hospital without incident.
[2022-09-23] MEDS ORDERED: morphine IR (immed. release) 30mg tablet PO SCH (12:00)
== END 2022-09-23 09:57 | disposition home or self-care (01) | DRG 753 ==
LOC: ADULT MH 18:15
PROVIDERS: ADMIT Psychiatry & Neurology Psychiatry; ATTEND Psychiatry & Neurology Psychiatry
DX: F31.9 Bipolar disorder, unspecified (principal); K86.89 Other specified diseases of pancreas; F12.20 Cannabis dependence, uncomplicated; F43.10 Post-traumatic stress disorder, unspecified; F41.9 Anxiety disorder, unspecified; I10 Essential (primary) hypertension; G89.4 Chronic pain syndrome; F17.200 Nicotine dependence, unspecified, uncomplicated; L03.90 Cellulitis, unspecified; F11.20 Opioid dependence, uncomplicated; J43.9 Emphysema, unspecified; K86.1 Other chronic pancreatitis; Z88.1 Allergy status to other antibiotic agents; Z88.2 Allergy status to sulfonamides; Z88.8 Allergy status to other drugs, medicaments and biological substances; Z79.899 Other long term (current) drug therapy; Z91.148 Patient's other noncompliance with medication regimen for other reason
CPT/HCPCS: 36415; 80053; 80061; 83036; 85025; 87040; 87070; 87077; 87081; 87186; A6250; A6449; J1200; J1630; J2060